=== PATIENT | female | born 2000 | race Two or more races ===

== ENCOUNTER 2022-02-08 19:49 | Emergency (ER) | payer SELFPAY ==
[~2022-02-08] VITALS: Ht 152.4 cm; Wt 77.0 kg
[2022-02-08] MEDS ORDERED: METR-167 MT (23:37)
[2022-02-08] MEDS ORDERED: DOXY100T2 MT (23:37)
[2022-02-08] MEDS ORDERED: LEVO1.5T37 MT (23:39)
[2022-02-08] MEDS ORDERED: EMTR1TAB11 MT (23:45)
[2022-02-08] MEDS ORDERED: CEFTRIAXONE SODIUM 500 MG/VIAL IM ONE (23:45)
[2022-02-08] MEDS ORDERED: RALT400T MT (23:45)
[2022-02-09 00:27] VITALS: BP 135/78
== END 2022-02-09 01:35 | disposition home or self-care (01) ==
LOC: ER 19:49
DX: R68.89 Other general symptoms and signs (principal); T76.21XA Adult sexual abuse, suspected, initial encounter; X58.XXXA Exposure to other specified factors, initial encounter; Z79.899 Other long term (current) drug therapy
CPT/HCPCS: 81025; 99291